=== PATIENT | male | born 1980 | race Caucasian/White ===

== ENCOUNTER → 2021-03-14 | Outpatient (REF) ==
[2021-03-14 12:03] LABS: POTASSIUM 3.3 mmol/L (3.5-5.1)
[2021-03-14 12:04] LABS: CALCIUM 8.6 mg/dL (8.3-10.5)
[2021-03-14 12:10] LABS: MAGNESIUM 2.07 mg/dL (1.60-2.60)
== END ==
LOC: LAB 09:22
DX: Z01.89 Encounter for other specified special examinations (principal)